=== PATIENT | female | born 1980 | race Caucasian/White ===

== ENCOUNTER 2017-09-13 19:28 | Inpatient (IN) | payer MEDICAID ==
[2017-09-13 20:48] LABS: ADD UMIC YES; UR AMORPHOUS CRYSTAL FEW /HPF (NONE SEEN); UR ASCORBIC ACID NEGATIVE (NEGATIVE); UR BACTERIA FEW /HPF (NONE SEEN); UR BILIRUBIN (Dip) NEGATIVE (NEGATIVE); UR BLOOD (Dip) NEGATIVE (NEGATIVE); UR CLARITY SLIGHTLY CLOUDY (CLEAR); UR COLOR YELLOW (YELLOW); UR GLUCOSE (Dip) NEGATIVE (NEGATIVE); UR KETONES (Dip) NEGATIVE (NEGATIVE); UR LEUKOCYTE ESTERASE (Dip) 2+ Leu/ul (NEGATIVE); UR NITRITE (Dip) NEGATIVE (NEGATIVE); UR RBC 2 /HPF (0-5); UR SPECIFIC GRAVITY (Dip) 1.017 (1.003-1.030); UR SQUAMOUS EPITHELIAL CELL FEW /HPF (FEW); UR TOTAL PROTEIN (Dip) NEGATIVE (NEGATIVE); UR UROBILINOGEN (Dip) NEGATIVE (NEGATIVE); UR WBC 11 /HPF (0-5)
[2017-09-13] MEDS ORDERED: LIDOCAINE 1% (MPF) 30 ML INJ INJ (22:30)
[2017-09-13] MEDS ORDERED: METHYLERGONOVINE 0.2 MG INJ IM (22:30)
[2017-09-13] MEDS ORDERED: CARBOPROST 250 MCG INJ IM (22:30)
[2017-09-13] MEDS ORDERED: MISOPROSTOL 200 MCG TAB PR (22:30)
[2017-09-13] MEDS ORDERED: IBUPROFEN 600 MG TAB PO (22:30)
[2017-09-13] MEDS ORDERED: OXYTOCIN 30 UNITS/LR 500 ML IV ×2 (22:30)
[2017-09-13] MEDS: LACTATED RINGER'S 1,000 ML IV (23:19)
[2017-09-13 23:22] LABS: ADD MAN DIFF? NO
[2017-09-13 23:24] LABS: WHITE BLOOD COUNT 7.4 10^3/ul (4.8-10.8)
[2017-09-13 23:24] LABS: BASOPHILS % 0.3 % (0.0-2.0); EOSINOPHILS % 0.1 % (0.0-7.0); HEMATOCRIT 37.8 % (37.0-47.0); HEMOGLOBIN 13.1 g/dl (12.0-16.0); LYMPHOCYTES # 1.9 10^3/ul (0.8-2.9); LYMPHOCYTES % 25.4 % (15.0-51.0); MEAN CORPUSCULAR HEMOGLOBIN 28.9 pg (29.0-33.0); MEAN CORPUSCULAR HGB CONC 34.7 g/dl (32.0-37.0); MEAN CORPUSCULAR VOLUME 83.3 fl (82.0-101.0); MEAN PLATELET VOLUME 11.7 fl (7.4-10.4); MONOCYTE # 0.5 10^3/ul (0.3-0.9); MONOCYTES % 6.4 % (0.0-11.0); NEUTROPHIL # 4.9 10^3/ul (1.6-7.5); NEUTROPHILS % 66.9 % (39.0-77.0); PLATELET COUNT 181 10^3/UL (140-415); RED BLOOD COUNT 4.54 10^6/ul (4.20-5.40); RED CELL DISTRIBUTION WIDTH 12.9 % (11.5-14.5)
[2017-09-13 23:46] LABS: INR 0.92; PROTIME 12.4 Sec (11.9-14.9)
[2017-09-13 23:47] LABS: PARTIAL THROMBOPLASTIN TIME 26.4 Sec (25.0-35.0)
[2017-09-14] MEDS: OXYTOCIN 30 UNITS/LR 500 ML IV (01:55)
[2017-09-14] MEDS ORDERED: LACTATED RINGER'S 1,000 ML IV (02:06)
[2017-09-14] MEDS ORDERED: OXYCODONE/ACETAMINOPHEN (5/325) TAB PO (02:30)
[2017-09-14] MEDS: LACTATED RINGER'S 1,000 ML IV ×3 (08:01→22:40)
[2017-09-14] MEDS: BUTORPHANOL 2 MG INJ IV (08:02)
[2017-09-14] MEDS: DINOPROSTONE 10 MG VAG SUPP VAG (17:22)
[2017-09-14 21:30] LABS: RAPID PLASMA REAGIN NONREACTIVE (NR)
[2017-09-15] MEDS: LACTATED RINGER'S 1,000 ML IV ×2 (06:56→22:29)
[2017-09-15] MEDS ORDERED: OXYTOCIN 30 UNITS/LR 500 ML BAG IV (07:00)
[2017-09-15] MEDS: DINOPROSTONE 10 MG VAG SUPP VAG (09:21)
[2017-09-15] MEDS ORDERED: CEFAZOLIN 2 GM/50 ML (PMX) 50 ML IVPB (10:00)
[2017-09-15] MEDS ORDERED: PHENYLephrine (100 MCG/ML) 5ML SYG ×3 (11:00→12:19)
[2017-09-15] MEDS ORDERED: OXYTOCIN 10 UNIT INJ (11:00)
[2017-09-15] MEDS ORDERED: morphine SULFATE/PF (10 MG/10 ML) INJ (11:00)
[2017-09-15] MEDS ORDERED: BUPIVACAINE 0.75%/DEXT (SPINAL) 2 ML INJ (11:01)
[2017-09-15] MEDS ORDERED: AZITHROMYCIN 500MG/NS (PMX) 250 ML (12:12)
[2017-09-15] MEDS: OXYTOCIN 30 UNITS/LR 500 ML IV ×2 (12:27→14:55)
[2017-09-15] MEDS ORDERED: morphine 2 MG INJ IV (14:00)
[2017-09-15] MEDS ORDERED: ONDANSETRON 4 MG INJ IV (14:00)
[2017-09-15] MEDS ORDERED: DIPHENHYDRAMINE 50 MG INJ IV (14:00)
[2017-09-15] MEDS ORDERED: NALOXONE (0.4 MG/ML) INJ IV (14:00)
[2017-09-15] MEDS ORDERED: OXYTOCIN 30 UNITS/LR 500 ML IV (14:30)
[2017-09-15] MEDS ORDERED: MISOPROSTOL 200 MCG TAB PR (14:30)
[2017-09-15] MEDS ORDERED: NA PHOSPHATE/BIPHOS 133 ML ENEMA PR (14:30)
[2017-09-15] MEDS ORDERED: LANOLIN 7 GM TUBE TOP (14:30)
[2017-09-15] MEDS ORDERED: METHYLERGONOVINE 0.2 MG INJ IM (14:30)
[2017-09-15] MEDS ORDERED: OXYCODONE/ACETAMINOPHEN (5/325) TAB PO (14:30)
[2017-09-15] MEDS ORDERED: CARBOPROST 250 MCG INJ IM (14:30)
[2017-09-15] MEDS ORDERED: METHYLERGONOVINE 0.2 MG TAB PO (14:30)
[2017-09-15] MEDS: KETOROLAC 30 MG INJ IV (15:35)
[2017-09-15] MEDS: ONDANSETRON 4 MG INJ IV (16:47)
[2017-09-15] MEDS: METOCLOPRAMIDE 10 MG INJ IV (16:48)
[2017-09-15] MEDS: FAMOTIDINE 20 MG INJ IV (16:48)
[2017-09-16] MEDS: LACTATED RINGER'S 1,000 ML IV ×4 (00:01→22:00)
[2017-09-16] MEDS: KETOROLAC 30 MG INJ IV ×2 (00:02→11:33)
[2017-09-16 08:59] LABS: ADD MAN DIFF? NO
[2017-09-16 09:04] LABS: WHITE BLOOD COUNT 8.4 10^3/ul (4.8-10.8)
[2017-09-16 09:04] LABS: BASOPHILS % 0.4 % (0.0-2.0); EOSINOPHILS % 0.5 % (0.0-7.0); HEMATOCRIT 28.8 % (37.0-47.0); HEMOGLOBIN 9.8 g/dl (12.0-16.0); LYMPHOCYTES # 1.6 10^3/ul (0.8-2.9); LYMPHOCYTES % 19.3 % (15.0-51.0); MEAN CORPUSCULAR HEMOGLOBIN 28.6 pg (29.0-33.0); MEAN PLATELET VOLUME 11.9 fl (7.4-10.4); MONOCYTE # 0.6 10^3/ul (0.3-0.9); NEUTROPHILS % 71.8 % (39.0-77.0); PLATELET COUNT 132 10^3/UL (140-415); RED BLOOD COUNT 3.43 10^6/ul (4.20-5.40); RED CELL DISTRIBUTION WIDTH 13.1 % (11.5-14.5)
[2017-09-16] MEDS ORDERED: IBUPROFEN 600 MG TAB PO (14:00)
[2017-09-16] MEDS: INFLUENZA VIRUS VACCINE 0.5 ML SYG IM* (14:00)
[2017-09-16 14:36] LABS: ADD MAN DIFF? NO
[2017-09-16 14:40] LABS: WHITE BLOOD COUNT 7.6 10^3/ul (4.8-10.8)
[2017-09-16 14:40] LABS: BASOPHILS % 0.3 % (0.0-2.0); HEMATOCRIT 32.9 % (37.0-47.0); LYMPHOCYTES # 1.7 10^3/ul (0.8-2.9); LYMPHOCYTES % 21.6 % (15.0-51.0); MEAN CORPUSCULAR HEMOGLOBIN 28.5 pg (29.0-33.0); MEAN CORPUSCULAR HGB CONC 33.4 g/dl (32.0-37.0); MEAN CORPUSCULAR VOLUME 85.2 fl (82.0-101.0); MEAN PLATELET VOLUME 11.3 fl (7.4-10.4); MONOCYTE # 0.4 10^3/ul (0.3-0.9); MONOCYTES % 5.6 % (0.0-11.0); NEUTROPHIL # 5.5 10^3/ul (1.6-7.5); NEUTROPHILS % 71.8 % (39.0-77.0); PLATELET COUNT 132 10^3/UL (140-415); RED BLOOD COUNT 3.86 10^6/ul (4.20-5.40); RED CELL DISTRIBUTION WIDTH 13.1 % (11.5-14.5)
[2017-09-16] MEDS: IODIXANOL LOCM 100 ML BTL (14:54)
[2017-09-16] MEDS: SOD CHLORIDE 0.9% 100 ML (14:54)
[2017-09-16 15:00] LABS: ALANINE AMINOTRANSFERASE 30 IU/L (13-69); ALBUMIN 2.4 g/dl (3.3-4.9); ALBUMIN/GLOBULIN RATIO 0.85; ALKALINE PHOSPHATASE 175 IU/L (42-121); ANION GAP 10 (8-16); ASPARTATE AMINO TRANSFERASE 25 IU/L (15-46); BILIRUBIN,INDIRECT 0.2 mg/dl (0-1.1); BILIRUBIN,TOTAL 0.2 mg/dl (0.2-1.3); BLOOD UREA NITROGEN 3 mg/dl (7-20); CALCIUM 7.8 mg/dl (8.4-10.2); CARBON DIOXIDE 22 mmol/L (21-31); CHLORIDE 111 mmol/L (97-110); CREATININE 0.63 mg/dl (0.44-1.00); GLUCOSE 99 mg/dl (70-220); MAGNESIUM 1.5 mg/dl (1.7-2.5); PHOSPHORUS 3.4 mg/dl (2.5-4.9); POTASSIUM 3.2 mmol/L (3.5-5.1); SODIUM 140 mmol/L (135-144); TOTAL PROTEIN 5.2 g/dl (6.1-8.1)
[2017-09-16 15:03] LABS: LACTIC ACID 2.2 mmol/L (0.5-2.0)
[2017-09-16 15:06] LABS: INR 0.96; PROTIME 12.9 Sec (11.9-14.9)
[2017-09-16 15:25] LABS: D-DIMER 3760.14 ng/ml (<460)
[2017-09-16 15:29] LABS: AADO2 Arterial 88.6 mmHg (7.0-24.0); Allen Test ACCEPTAB; Arterial Base Excess -2.6 mmol/L (-3.0-3); Arterial Blood Gas Oxygen Sat 96.6 mmHG (95.0-98.0); Arterial COHb 0.3 % (0.0-3.0); Arterial Fraction of Oxyhgb 95.9 % (93.0-99.0); Arterial MetHb 0.4 % (0.0-1.5); Arterial Total Hemglobin 12.7 g/dl (12.0-18.0); Arterial pCO2 28.6 mmhg (35-45); MODE NASAL CANNULA; Site Right Brachial
[2017-09-16 15:33] LABS: CHOLESTEROL 184 mg/dl (100-200)
[2017-09-16 15:33] LABS: CHOL/HDL RATIO 3.8 RATIO; HDL CHOLESTEROL 48 mg/dl (34-82); LDL CHOLESTEROL,CALCULATED 87 mg/dl; TRIGLYCERIDES 244 mg/dl (0-149)
[2017-09-16 15:39] LABS: AMMONIA < 9 umol/l (9-30)
[2017-09-16] MEDS: MAGNESIUM SULFATE 2 GM/50 ML 50 ML IVPB (16:01)
[2017-09-16] MEDS: SOD CHLORIDE 0.9% 500 ML IV (16:01)
[2017-09-16] MEDS: POTASSIUM CHLORIDE 100 ML IVPB ×2 (17:13→22:00)
[2017-09-16] MEDS ORDERED: INFLUENZA VIRUS VACCINE 0.5 ML SYG IM* (20:00)
[2017-09-17] MEDS: LACTATED RINGER'S 1,000 ML IV ×3 (06:29→22:29)
[2017-09-17 06:53] LABS: ADD MAN DIFF? NO
[2017-09-17 06:59] LABS: WHITE BLOOD COUNT 10.5 10^3/ul (4.8-10.8)
[2017-09-17 06:59] LABS: BASOPHILS % 0.4 % (0.0-2.0); HEMATOCRIT 31.6 % (37.0-47.0); HEMOGLOBIN 10.7 g/dl (12.0-16.0); LYMPHOCYTES # 1.8 10^3/ul (0.8-2.9); LYMPHOCYTES % 16.8 % (15.0-51.0); MEAN CORPUSCULAR HEMOGLOBIN 28.4 pg (29.0-33.0); MEAN CORPUSCULAR HGB CONC 33.9 g/dl (32.0-37.0); MEAN CORPUSCULAR VOLUME 83.8 fl (82.0-101.0); MONOCYTE # 0.7 10^3/ul (0.3-0.9); MONOCYTES % 6.3 % (0.0-11.0); PLATELET COUNT 149 10^3/UL (140-415); RED BLOOD COUNT 3.77 10^6/ul (4.20-5.40); RED CELL DISTRIBUTION WIDTH 13.2 % (11.5-14.5)
[2017-09-17 07:25] LABS: ANION GAP 11 (8-16); BLOOD UREA NITROGEN 6 mg/dl (7-20); CALCIUM 8.4 mg/dl (8.4-10.2); CARBON DIOXIDE 24 mmol/L (21-31); CHLORIDE 113 mmol/L (97-110); GLUCOSE 92 mg/dl (70-220); MAGNESIUM 1.8 mg/dl (1.7-2.5); PHOSPHORUS 4.7 mg/dl (2.5-4.9); POTASSIUM 3.8 mmol/L (3.5-5.1); SODIUM 144 mmol/L (135-144)
[2017-09-17 07:27] LABS: LACTIC ACID 0.8 mmol/L (0.5-2.0)
[2017-09-17] MEDS: IODIXANOL LOCM 100 ML BTL (09:48)
[2017-09-17] MEDS: SOD CHLORIDE 0.9% 100 ML (09:48)
[2017-09-17] MEDS: ACETAMINOPHEN 500 MG TAB PO (09:55)
[2017-09-17 10:07] LABS: ALANINE AMINOTRANSFERASE 28 IU/L (13-69); ALBUMIN 2.4 g/dl (3.3-4.9); ALKALINE PHOSPHATASE 159 IU/L (42-121); ASPARTATE AMINO TRANSFERASE 27 IU/L (15-46); BILIRUBIN,INDIRECT 0.2 mg/dl (0-1.1); BILIRUBIN,TOTAL 0.2 mg/dl (0.2-1.3); TOTAL PROTEIN 5.2 g/dl (6.1-8.1)
[2017-09-17] MEDS: CEFTRIAXONE 1 GM/50 ML (PMX) 50 ML IVPB (13:38)
[2017-09-17] MEDS: ENOXAPARIN 100 MG/ML SYG SC (21:00)
[2017-09-18] MEDS: OXYCODONE/ACETAMINOPHEN (5/325) TAB PO (02:13)
[2017-09-18 08:24] LABS: ADD MAN DIFF? NO
[2017-09-18 08:30] LABS: WHITE BLOOD COUNT 8.8 10^3/ul (4.8-10.8)
[2017-09-18 08:30] LABS: BASOPHIL # 0.1 10^3/ul (0.0-0.1); BASOPHILS % 0.6 % (0.0-2.0); HEMATOCRIT 30.8 % (37.0-47.0); HEMOGLOBIN 10.3 g/dl (12.0-16.0); LYMPHOCYTES # 2.5 10^3/ul (0.8-2.9); LYMPHOCYTES % 28.3 % (15.0-51.0); MEAN CORPUSCULAR HEMOGLOBIN 28.5 pg (29.0-33.0); MEAN CORPUSCULAR HGB CONC 33.4 g/dl (32.0-37.0); MEAN CORPUSCULAR VOLUME 85.3 fl (82.0-101.0); MEAN PLATELET VOLUME 12.1 fl (7.4-10.4); MONOCYTE # 0.6 10^3/ul (0.3-0.9); NEUTROPHIL # 5.5 10^3/ul (1.6-7.5); NEUTROPHILS % 63.3 % (39.0-77.0); PLATELET COUNT 156 10^3/UL (140-415); RED BLOOD COUNT 3.61 10^6/ul (4.20-5.40); RED CELL DISTRIBUTION WIDTH 13.1 % (11.5-14.5)
[2017-09-18 08:47] LABS: ANION GAP 10 (8-16); BLOOD UREA NITROGEN 8 mg/dl (7-20); CALCIUM 8.1 mg/dl (8.4-10.2); CARBON DIOXIDE 25 mmol/L (21-31); CHLORIDE 110 mmol/L (97-110); CREATININE 0.79 mg/dl (0.44-1.00); GLUCOSE 84 mg/dl (70-220); POTASSIUM 3.3 mmol/L (3.5-5.1); SODIUM 142 mmol/L (135-144)
[2017-09-18] MEDS: DIPHTH/TET/ACEL PERTUSS (ADULT) 0.5 ML VIAL IM* (09:00)
[2017-09-18] MEDS: ENOXAPARIN 100 MG/ML SYG SC (10:05)
[2017-09-18] MEDS: POTASSIUM CHLORIDE (SR) 20 MEQ TAB PO ×2 (10:58→20:16)
[2017-09-18] MEDS: ACETAMINOPHEN 500 MG TAB PO (12:30)
[2017-09-18 13:10] LABS: CREATINE KINASE 109 IU/L (23-200)
[2017-09-18] MEDS: CEFTRIAXONE 1 GM/50 ML (PMX) 50 ML IVPB (13:15)
[2017-09-18 13:22] LABS: CK INDEX 0.3; CK-MB 0.32 ng/ml (0.0-2.4)
[2017-09-18 13:25] LABS: TROPONIN-I < 0.012 ng/ml (0.00-0.12)
[2017-09-18] MEDS: FUROSEMIDE 40 MG TAB PO (16:36)
[2017-09-18] MEDS: MAGNESIUM SULFATE 2 GM/50 ML 50 ML IVPB (16:39)
[2017-09-19] MEDS: ACETAMINOPHEN 500 MG TAB PO (01:50)
[2017-09-19] MEDS: FUROSEMIDE 20 MG TAB PO (11:19)
[2017-09-19 12:01] LABS: ANION GAP 15 (8-16); BLOOD UREA NITROGEN 8 mg/dl (7-20); CALCIUM 9.1 mg/dl (8.4-10.2); CARBON DIOXIDE 27 mmol/L (21-31); CHLORIDE 101 mmol/L (97-110); CREATININE 0.83 mg/dl (0.44-1.00); GLUCOSE 98 mg/dl (70-220); POTASSIUM 3.9 mmol/L (3.5-5.1); SODIUM 139 mmol/L (135-144)
[2017-09-19 12:01] LABS: MAGNESIUM 1.9 mg/dl (1.7-2.5)
[2017-09-19] MEDS: CEFTRIAXONE 1 GM/50 ML (PMX) 50 ML IVPB (13:06)
[2017-09-19] MEDS: DIPHTH/TET/ACEL PERTUSS (ADULT) 0.5 ML VIAL IM* (15:36)
== END 2017-09-19 16:55 | disposition home or self-care (01) | DRG 765 ==
LOC: OBT 19:28 → ICU 09-16 15:05 → PP1 09-17 16:35 → L-D 19:30 → OBT 21:50 → PP1 09-15 15:06 → L-D 21:50
PROC: 10D00Z1 Extraction of Products of Conception, Low, Open Approach (ICD-10-PCS; principal; 2017-09-15)
DX: O34.63 Maternal care for abnormality of vagina, third trimester (principal); G93.41 Metabolic encephalopathy; I50.33 Acute on chronic diastolic (congestive) heart failure; N82.3 Fistula of vagina to large intestine; O86.20 Urinary tract infection following delivery, unspecified; I82.890 Acute embolism and thrombosis of other specified veins; O87.8 Other venous complications in the puerperium; Z3A.39 39 weeks gestation of pregnancy; Z37.0 Single live birth; O90.89 Other complications of the puerperium, not elsewhere classified; R06.02 Shortness of breath; R51 Headache; I95.9 Hypotension, unspecified; R09.02 Hypoxemia; R07.9 Chest pain, unspecified; I11.0 Hypertensive heart disease with heart failure
CPT/HCPCS: 36600; 70450; 71275; 74178; 74183; 76815; 76818; 80048; 80053; 80061; 80076; 81001; 82140; 82550; 82553; 82803; 82962; 83605; 83735; 84100; 84484; 85025; 85378; 85610; 85730; 86592; 86850; 86900; 86901; 87081; 87086; 90686; 90715; 93005; 93306; 99464